=== PATIENT | female | born 1965 | race Caucasian/White ===

== ENCOUNTER 2020-04-05 14:37 | Outpatient (CLI) | payer OTHER ==
--- NOTE | 2020-04-05 16:33 | Ultrasound Report ---
Reason: RIGHT LEG EDEMA Procedure Date: 04/05/2020 Accession Number: [id number] / [id number] Procedure: US - Duplex Ext Veins Right CPT Code: Addended Final Report FULL RESULT: EXAM: RIGHT LOWER EXTREMITY VENOUS ULTRASOUND EXAM DATE: 04/05/2020 03:34 PM. CLINICAL HISTORY: RIGHT LEG EDEMA. Trauma while walking per patient. COMPARISON: None. TECHNIQUE: Real-time sonographic vascular imaging was performed by the oil well logging engineer through the lower extremity utilizing both color-flow and Doppler spectral analysis. Multiple client relations representative static images were saved for review. FINDINGS: Common Femoral Vein (CFV): Normal. CFV-GSV Junction: Normal. Profunda Femoral Vein (PFV): Normal. Femoral Vein (FV) Prox: Normal. Femoral Vein (FV) Mid: Normal. Femoral Vein (FV) Dist: Normal. Popliteal Vein: Normal. Posterior Tibial Veins: Normal. Peroneal Veins: Normal. Contralateral Side CFV: Normal. Other: Medial right knee fluid collection with elongated internal echoes measures 6.1 x 2.9 x 1.7 cm. IMPRESSION: 1. No evidence for deep venous thrombosis. 2. Elongated medial right knee fluid collection. Question soft tissue hematoma or Marx's cyst. [facility] The call report notification system was initiated by Dr. Kel Heller at 04:09 PM on 04/05/2020. ADDENDUM: 04/05/20 17:52 The above call report findings were discussed with Benita Parada by Dr. eKl Heller at 05:52 PM on 04/05/2020.
== END 2020-04-05 14:38 | disposition home or self-care (01) ==
LOC: DI 14:37
PROVIDERS: ATTEND Physician Assistant Medical
DX: M25.461 Effusion, right knee (principal)

== ENCOUNTER 2021-04-06 09:20 | Outpatient (CLI) | payer BC, OTHER ==
--- NOTE | 2021-04-06 11:41 | XRAY Report ---
PROCEDURE: Ankle 3 View RT INDICATIONS: ANKLE PAIN, RIGHT TECHNIQUE: 3 views of the ankle were acquired. COMPARISON: None. FINDINGS: Bones: No fractures or dislocations. Ankle mortise is normally aligned. No suspicious bony lesions . Soft tissues: No tibiotalar joint effusion. Achilles tendon appears normal. IMPRESSION: No acute osseous abnormalities. Reviewed by: Norah Fox MD on 04/06/2021 11:39 AM PDT Approved by: Norah Fox MD on 04/06/2021 11:39 AM PDT Station ID: [id number]
--- NOTE | 2021-04-06 11:41 | XRAY Report ---
PROCEDURE: Foot 2 View RT INDICATIONS: BUNION, RIGHT FOOT TECHNIQUE: 2 views of the foot were acquired. COMPARISON: None. FINDINGS: Bones: No fractures or dislocations. No suspicious bony lesions. Metatarsus adductus and hallux va lgus. There is moderate first metatarsophalangeal joint degeneration. Partite medial sesamoid. Soft tissues: No tibiotalar joint effusion. Achilles tendon appears normal. IMPRESSION: 1. Metatarsus adductus and hallucis valgus. 2. Moderate first metatarsal phalangeal joint degeneration. 3. Bipartite medial sesamoid. Reviewed by: Norah Fox MD on 04/06/2021 11:40 AM PDT Approved by: Norah Fox MD on 04/06/2021 11:40 AM PDT Station ID: [id number]
== END 2021-04-06 23:59 | disposition home or self-care (01) ==
LOC: DI.N 09:20
PROVIDERS: ATTEND Family Medicine
DX: M25.571 Pain in right ankle and joints of right foot (principal); M20.11 Hallux valgus (acquired), right foot; M19.071 Primary osteoarthritis, right ankle and foot

== ENCOUNTER 2021-07-11 08:00 | Outpatient (CLI) | payer SELFPAY | END 2021-07-11 23:59 | disposition home or self-care (01) | LOC: LAB.N 08:00 | PROVIDERS: ATTEND Nurse Practitioner | DX: L02.91 Cutaneous abscess, unspecified (principal) | CPT/HCPCS: 87070; 87205 ==